=== PATIENT | male | born 1955 | race Caucasian/White ===

== ENCOUNTER → 2025-06-19 | Outpatient (REF) | payer MEDICARE ==
[~2025-06-19] MED LIST: IOPAMIDOL 370 MG/ML 100 ML INFUS..BTL INJ ONE
[2025-06-19 11:57] LABS: EST GLOMERULAR FILTRATION RATE 93.0 ML/MIN (>=60)
== END ==
LOC: CT 10:59
PROVIDERS: ATTEND Family Medicine
DX: R19.00 Intra-abdominal and pelvic swelling, mass and lump, unspecified site (principal)
CPT/HCPCS: 36415; 74177; 82565; 84520; Q9967